=== PATIENT | male | born 1960 | race Caucasian/White ===

== ENCOUNTER 2019-06-08 21:49 | Emergency (ER) | payer OTHER, SELFPAY ==
[2019-06-08 21:59] VITALS: BP 145/81; PULSE 68; RESP 18; TEMP 36.6; O2SAT 98
--- NOTE | 2019-06-08 22:07 | ED.GENADUL_ITS ---
Discharge Plan Disposition Patient Disposition: HOME Condition: Stable Discharge Details Chief Complaint: Cellulitis Clinical Impression: Abrasion of right lower extremity Primary Care Provider: Ricarda,Local ED Provider: Shay Cheatham Home Meds and New Rx's Prescriptions: New cephalexin [Keflex] 500 mg capsule 500 mg PO QID 5 Days Qty: 20 RF: 0 No Action acyclovir 200 mg Capsule PRN PRNRF: 0 Discharge Instructions Instructions: Abrasion (ED) Additional Instructions: Continue to perform appropriate wound care and clean wound with soap and water. If wound will not be in an environment where we will get dirty you may keep wound open to air to allow wound to dry out. Continue to watch for any worsening signs of infection as discussed and if these occur start antibiotic immediately. If you start the antibiotic please take until fully completed. Return to emergency department immediately for any new or worsening symptoms or if you start the antibiotic and do not see signs of improvement in 24 to 48 hours. Follow-up with your primary care provider as needed for reassessment Referrals: Primary Care Provider [Outside] Discharge Data Discharge Date/Time-TO BE ENTERED AT DEPARTURE: 06/08/19 22:51 Medical Decision Making Patient presenting to the emergency department for chief complaint of right lower leg wound that he is concerned about infection. Patient states that he had a superficial abrasion to the anterior glover of the right lower leg 3 days ago. Today he is informed that the dormitory that he is staying at has a boil water precaution, and he has been swimming at [facility]. Patient denies any odorous drainage, purulence, but does state mild erythema surrounding the wound. Physical exam shows superficial abrasion to the anterior glover of the right lower leg. There is direct erythema surrounding the wound margins and early eschar formation but no purulent drainage or surrounding diffuse erythema is noted. This is more consistent with patient getting wound wet then I feel infectious etiology at this point. Did discuss with patient observing wound for an additional 24 hours but given his concern about infection he was given prescription for Keflex if wound does not look better in the next 24 hours while leaving open to air. Return precautions were discussed. After discussion of diagnosis and plan of care patient has no further needs, questions, or concerns and states clear understanding to return to the emergency department for any worsening symptoms. HPI General Mode of arrival: ambulatory . Date/Time Provider Initiated Documentation: 06/08/19 22:05 . Limitations to Documentation: no limitations . Information obtained by: patient and RN notes reviewed . History of Present Illness 58 year old M presents to the emergency department with the chief complaint of right leg injury, described as mild, Patient started experiencing this day(s) (3) and it has been constant. Patient notes no other symptoms.. Related Data Home Medications Medication Instructions Recorded Confirmed acyclovir PRN PRN 06/08/19 cephalexin [Keflex] 500 mg PO QID 5 Days #20 cap 06/08/19 Previous Rx's Medication Instructions Recorded cephalexin [Keflex] 500 mg PO QID 5 Days #20 cap 06/08/19 Allergies Allergy/AdvReac Type Severity Reaction Status Date / Time No Known Allergies Allergy Unverified 06/08/19 22:06 General Stated Complaint: Cellulitis ROBINSON: 4 Review of Systems Constitutional Denies chills and Denies fever(s) Gastrointestinal Denies vomiting Musculoskeletal Denies joint swelling and Denies limited range of motion Integumentary/Breasts Reports as per HPI and Reports wounds PFSH Social History Smoking/Tobacco Use Status: Never Alcohol Intake: never Drug use: Never Substance use type: does not use Do you feel safe at home: Yes Do you feel safe in your relationship?: Yes Exam Const General: cooperative, no acute distress and not ill appearing Orientation: alert, awake and oriented x3 HENMT Mouth: moist mucous membranes Resp Effort & Inspection: normal respiratory effort, able to speak in complete sentences and no respiratory distress Cardio Rate: regular rate Rhythm: regular rhythm Extrem General: full ROM, normal capillary refill and normal exam except as noted Left lower extremity: lower leg Details: abrasion (With mild surrounding erythema. ) mid lower leg anterior Details: single Course Vital Signs Temperature 36.6 C 06/08/19 21:59 Pulse 68 06/08/19 21:59 Respiratory Rate 18 06/08/19 21:59 Blood Pressure 145/81 H 06/08/19 21:59 Pulse Oximetry 98 06/08/19 21:59 Temperature 36.6 C 06/08/19 21:59 Temperature Source Temporal Artery Scan 06/08/19 21:59 Pulse 68 06/08/19 21:59 Respiratory Rate 18 06/08/19 21:59 Blood Pressure 145/81 H 06/08/19 21:59 Pulse Oximetry 98 06/08/19 21:59 Oxygen Delivery Method Room Air 06/08/19 21:59 Oxygen Flow Rate 0 06/08/19 21:59
== END 2019-06-08 22:51 | disposition home or self-care (01) ==
LOC: ER 22:53
PROVIDERS: Emergency Provider Nurse Practitioner Family
DX: S80.811A Abrasion, right lower leg, initial encounter (principal); X58.XXXA Exposure to other specified factors, initial encounter
CPT/HCPCS: 99283